=== PATIENT | female | born 1950 | race Caucasian/White ===

== ENCOUNTER 2018-01-24 17:19 | Inpatient (IN) | payer OTHER ==
[~2018-01-24] VITALS: Ht 154.9 cm; Wt 65.8 kg
[2018-01-24 17:22] VITALS: BP 184/74
[2018-01-24] MEDS ORDERED: NACL 0.9% 1,000 ML IV ONE (17:40)
[2018-01-24] MEDS ORDERED: METOCLOPRAMIDE 10 MG/2 ML INJ VIAL IVP ONE (17:40)
[2018-01-24 18:08] LABS: BASOPHILS # (AUTO) 0.1 K/uL (0.00-0.22); BASOPHILS % (AUTO) 0.6 % (0.0-2.0); EOSINOPHILS # (AUTO) 0.1 K/uL (0-0.4); EOSINOPHILS % (AUTO) 0.9 % (0.0-4.0); HEMATOCRIT 29.7 % (36-48); HEMOGLOBIN 10.3 g/dL (12.0-16.0); LYMPHOCYTES % (AUTO) 9.8 % (20.5-51.1); MEAN CORPUSCULAR HEMOGLOBIN 28 pg (27-31); MEAN CORPUSCULAR HGB CONC 35 g/dL (33-37); MONOCYTES # (AUTO) 0.5 K/uL (0.8-1.0); MONOCYTES % (AUTO) 4.8 % (1.7-9.3); NEUTROPHILS # (AUTO) 8.5 K/uL (1.8-7.7); NEUTROPHILS % (AUTO) 83.9 % (42.2-75.2); PLATELET COUNT (AUTO) 399 K/uL (140-450); RED BLOOD CELL COUNT(AUTO) 3.67 MIL/uL (4.20-5.40); RED CELL DISTRIBUTION WIDTH 13.4 % (11.6-13.7); WHITE BLOOD COUNT (AUTO) 10.2 K/uL (4.8-10.8)
[2018-01-24 18:25] LABS: ALBUMIN 2.6 g/dL (3.4-5.0); ANION GAP 16.7 (8-16); CARBON DIOXIDE 21.4 mmol/L (21-32); POTASSIUM 5.1 mmol/L (3.5-5.1); TOTAL BILIRUBIN 0.3 mg/dL (0.0-1.0)
[2018-01-24 18:29] LABS: CREATININE 4.4 mg/dL (0.6-1.3)
[2018-01-24] MEDS ORDERED: NACL 0.9% 1,000 ML IV SCH (18:48)
[2018-01-24] MEDS ORDERED: ACETAMINOPHEN 325 MG TAB PO PRN (18:50)
[2018-01-24] MEDS ORDERED: MORPHINE SULFATE 4 MG/ML SYR IVP PRN ×2 (18:50→19:25)
[2018-01-24] MEDS ORDERED: NITROGLYCERIN 0.4 MG TAB SL PRN (19:25)
[2018-01-24] MEDS ORDERED: DEXTROSE 50% 50 ML SYR IVP PRN (19:30)
[2018-01-24 19:33] LABS: AMYLASE 55 U/L (25-115); CHOL/HDL RATIO 5.2 (1-4.5); FREE T4 (FREE THYROXINE) 1.43 ng/dL (0.76-1.46); HDL CHOLESTEROL 47 mg/dL (40-60); LDL (CALC) 161 mg/dL (60-100); LIPASE 113 U/L (73-393); MAGNESIUM 2.1 mg/dL (1.8-2.4); PHOSPHORUS 5.6 mg/dL (2.5-4.9); THYROID STIMULATING HORMONE 8.39 uIU/mL (0.34-3.74); TRIGLYCERIDES 191 mg/dL (30-150)
[2018-01-24] MEDS ORDERED: SYN.1 PO (19:38)
[2018-01-24] MEDS ORDERED: METO25TA PO (19:38)
[2018-01-24] MEDS ORDERED: AMLO5TAB PO (19:38)
[2018-01-24] MEDS ORDERED: HUM SUBQ ×2 (19:38)
[2018-01-24] MEDS ORDERED: SODIUM PHOSPHATE 118 ML ENEM RC PRN (19:45)
[2018-01-24] MEDS ORDERED: BISACODYL 10 MG SUPP RC SCH (20:00)
[2018-01-24] MEDS: amLODIPine 5 MG TAB PO SCH (20:48)
[2018-01-24] MEDS: METOPROLOL 50 MG TAB PO SCH (20:49)
[2018-01-24] MEDS: BLOOD GLUCOSE MONITORING 1 DEV DEV FS SCH (20:51)
[2018-01-24] MEDS ORDERED: SIMVASTATIN 20 MG TAB PO SCH (21:00)
[2018-01-24] MEDS: SIMVASTATIN 20 MG TAB PO SCH (21:13)
[2018-01-24] MEDS: HYDROcodone/APAP 7.5/325 MG 1 TAB PO PRN (21:13)
[2018-01-24] MEDS ORDERED: FUROSEMIDE 40 MG/4 ML VIAL IVP SCH (22:00)
[2018-01-24] MEDS ORDERED: CALCIUM ACETATE 667 MG TAB PO SCH (22:30)
[2018-01-24] MEDS ORDERED: POLYETHYLENE GLYCOL 17 GM/PKT PO SCH (22:30)
[2018-01-24] MEDS: INSULIN LISPRO SLIDING SCALE 100 UNITS/ML VIAL SUBQ PRN (22:47)
[2018-01-25] VITALS: BP 157/88
[2018-01-25 03:47] LABS: BASOPHILS # (AUTO) 0.1 K/uL (0.00-0.22); BASOPHILS % (AUTO) 0.6 % (0.0-2.0); EOSINOPHILS # (AUTO) 0.1 K/uL (0-0.4); EOSINOPHILS % (AUTO) 1.5 % (0.0-4.0); HEMATOCRIT 25.9 % (36-48); HEMOGLOBIN 8.9 g/dL (12.0-16.0); LYMPHOCYTES # (AUTO) 1.1 K/uL (2.5-16.5); LYMPHOCYTES % (AUTO) 11.8 % (20.5-51.1); MEAN CORPUSCULAR HEMOGLOBIN 28 pg (27-31); MEAN CORPUSCULAR HGB CONC 34 g/dL (33-37); MEAN CORPUSCULAR VOLUME 81.8 fL (80-94); MONOCYTES # (AUTO) 0.6 K/uL (0.8-1.0); MONOCYTES % (AUTO) 6.9 % (1.7-9.3); NEUTROPHILS # (AUTO) 7.3 K/uL (1.8-7.7); NEUTROPHILS % (AUTO) 79.2 % (42.2-75.2); PLATELET COUNT (AUTO) 340 K/uL (140-450); RED BLOOD CELL COUNT(AUTO) 3.17 MIL/uL (4.20-5.40); RED CELL DISTRIBUTION WIDTH 13.4 % (11.6-13.7); WHITE BLOOD COUNT (AUTO) 9.2 K/uL (4.8-10.8)
[2018-01-25 03:51] LABS: ALBUMIN 2.2 g/dL (3.4-5.0); ANION GAP 13.8 (8-16); CARBON DIOXIDE 21.6 mmol/L (21-32); MAGNESIUM 1.9 mg/dL (1.8-2.4); PHOSPHORUS 5.5 mg/dL (2.5-4.9); POTASSIUM 4.4 mmol/L (3.5-5.1); TOTAL BILIRUBIN 0.2 mg/dL (0.0-1.0)
[2018-01-25 04:00] VITALS: BP 157/55
[2018-01-25 04:15] LABS: CREATININE 4.3 mg/dL (0.6-1.3)
[2018-01-25] MEDS ORDERED: SODIUM CHLORIDE 1 GM TAB PO SCH (05:00)
[2018-01-25] MEDS: LEVOTHYROXINE 0.1 MG TAB PO SCH (05:40)
[2018-01-25] MEDS: BLOOD GLUCOSE MONITORING 1 DEV DEV FS SCH ×4 (05:48→20:35)
[2018-01-25] MEDS: INSULIN LISPRO SLIDING SCALE 100 UNITS/ML VIAL SUBQ PRN ×4 (05:49→20:50)
[2018-01-25] MEDS ORDERED: INSULIN LISPRO 100 UNITS/ML VIAL SUBQ SCH ×2 (06:30→16:30)
[2018-01-25 08:00] VITALS: BP 176/68
[2018-01-25] MEDS: ASPIRIN 81 MG TAB.CHEW PO SCH (08:24)
[2018-01-25] MEDS: METOPROLOL 50 MG TAB PO SCH ×2 (08:24→20:28)
[2018-01-25] MEDS: HYDROcodone/APAP 7.5/325 MG 1 TAB PO PRN ×2 (08:24→14:21)
[2018-01-25] MEDS: FUROSEMIDE 40 MG/4 ML VIAL IVP SCH ×2 (08:25→12:02)
[2018-01-25] MEDS: amLODIPine 5 MG TAB PO SCH ×2 (08:25→20:29)
[2018-01-25] MEDS ORDERED: LISINOPRIL 5 MG TAB PO SCH (09:00)
[2018-01-25] MEDS ORDERED: FUROSEMIDE 20 MG/2 ML VIAL IVP SCH (09:00)
[2018-01-25 12:00] VITALS: BP 175/75
[2018-01-25] MEDS: PROMETHAZINE 25 MG/ML VIAL IVP PRN (12:02)
[2018-01-25] MEDS ORDERED: NACL 0.9% 1,000 ML IV SCH (13:40)
[2018-01-25] MEDS ORDERED: SODIUM POLYSTYRENE 15 GM/60 ML UDBTL PO SCH (13:50)
[2018-01-25] MEDS ORDERED: METOPROLOL 25 MG TAB PO SCH (14:12)
[2018-01-25] MEDS ORDERED: hydrALAZINE 20 MG/ML VIAL IVP PRN (14:45)
[2018-01-25] MEDS ORDERED: NACL 3% 500 ML IV SCH (14:55)
[2018-01-25 16:00] VITALS: BP 158/67
[2018-01-25] MEDS: hydrALAZINE 10 MG TAB PO SCH (17:20)
[2018-01-25 18:42] LABS: APPEARANCE,URINE CLEAR (CLEAR); BILIRUBIN,URINE NEGATIVE (NEGATIVE); BLOOD, URINE 1+ (NEGATIVE); LEUKOCYTE ESTERASE ,URINE NEGATIVE (NEGATIVE); NITRITE, URINE NEGATIVE (NEGATIVE); PH,URINE 6.5 (5.0-9.0); UGLUCOSE 1+ (NEGATIVE)
[2018-01-25 18:44] LABS: CARBON DIOXIDE 18.7 mmol/L (21-32); POTASSIUM 4.4 mmol/L (3.5-5.1)
[2018-01-25 18:47] LABS: ANION GAP 18.7 (8-16); CREATININE 4.5 mg/dL (0.6-1.3)
[2018-01-25 18:48] LABS: BARBITURATE, URINE NEG. ng/ml (NEG <=200); BENZODIAZEPINE, URINE NEG. ng/mL (NEG <=200); CANNABINOID, URINE NEG. ng/mL (NEG <=50); COCAINE, URINE NEG. ng/mL (NEG <=300); COLOR,URINE STRAW (YELLOW); OPIATE, URINE NEG. ng/mL (NEG <=2000); PHENCYCLIDINE SCREEN,URINE NEG. ng/mL (NEG <=25)
[2018-01-25 18:54] LABS: COARSE GRANULAR CASTS,URINE 0-10 /LPF (None Seen); RBC,URINE 0-5 (RARE) /HPF (0-5); WBC,URINE 0-5 (RARE) /HPF (0-5)
[2018-01-25 20:00] VITALS: BP 176/75
[2018-01-25] MEDS: SIMVASTATIN 20 MG TAB PO SCH (20:28)
[2018-01-25] MEDS: AMITRIPTYLINE 25 MG TAB PO SCH (20:29)
[2018-01-25] MEDS ORDERED: METOPROLOL 50 MG TAB PO SCH ×2 (21:00)
[2018-01-25] MEDS ORDERED: AMITRIPTYLINE 25 MG TAB PO SCH (21:00)
[2018-01-25 23:34] LABS: ANION GAP 16.1 (8-16); CARBON DIOXIDE 20.9 mmol/L (21-32)
[2018-01-25 23:43] LABS: CREATININE 4.6 mg/dL (0.6-1.3)
[2018-01-26] VITALS: BP 151/65
[2018-01-26 04:00] VITALS: BP 169/66
[2018-01-26 05:48] LABS: BASOPHILS # (AUTO) 0.1 K/uL (0.00-0.22); BASOPHILS % (AUTO) 0.9 % (0.0-2.0); EOSINOPHILS # (AUTO) 0.2 K/uL (0-0.4); EOSINOPHILS % (AUTO) 1.9 % (0.0-4.0); HEMATOCRIT 25.7 % (36-48); HEMOGLOBIN 8.8 g/dL (12.0-16.0); LYMPHOCYTES # (AUTO) 1.3 K/uL (2.5-16.5); LYMPHOCYTES % (AUTO) 13.7 % (20.5-51.1); MEAN CORPUSCULAR HEMOGLOBIN 28 pg (27-31); MEAN CORPUSCULAR HGB CONC 34 g/dL (33-37); MEAN CORPUSCULAR VOLUME 81.8 fL (80-94); MONOCYTES # (AUTO) 0.7 K/uL (0.8-1.0); MONOCYTES % (AUTO) 7.5 % (1.7-9.3); PLATELET COUNT (AUTO) 354 K/uL (140-450); RED BLOOD CELL COUNT(AUTO) 3.14 MIL/uL (4.20-5.40); RED CELL DISTRIBUTION WIDTH 13.1 % (11.6-13.7); WHITE BLOOD COUNT (AUTO) 9.2 K/uL (4.8-10.8)
[2018-01-26 06:27] LABS: MAGNESIUM 2.2 mg/dL (1.8-2.4); PHOSPHORUS 6.8 mg/dL (2.5-4.9)
[2018-01-26 06:29] LABS: ANION GAP 15.4 (8-16); CARBON DIOXIDE 19.9 mmol/L (21-32); POTASSIUM 4.3 mmol/L (3.5-5.1)
[2018-01-26] MEDS: LEVOTHYROXINE 0.1 MG TAB PO SCH (06:31)
[2018-01-26] MEDS: BLOOD GLUCOSE MONITORING 1 DEV DEV FS SCH ×4 (06:31→21:29)
[2018-01-26 06:35] LABS: CREATININE 4.7 mg/dL (0.6-1.3)
[2018-01-26] MEDS: INSULIN LISPRO SLIDING SCALE 100 UNITS/ML VIAL SUBQ PRN ×4 (06:35→21:32)
[2018-01-26 08:00] VITALS: BP 184/76
[2018-01-26] MEDS: METOPROLOL 50 MG TAB PO SCH ×2 (08:11→22:09)
[2018-01-26] MEDS: amLODIPine 5 MG TAB PO SCH ×2 (08:11→22:10)
[2018-01-26] MEDS: ASPIRIN 81 MG TAB.CHEW PO SCH (08:11)
[2018-01-26] MEDS: hydrALAZINE 10 MG TAB PO SCH (08:14)
[2018-01-26] MEDS: FUROSEMIDE 100 MG/10 ML VIAL IV SCH ×2 (09:25→13:14)
[2018-01-26 12:00] VITALS: BP 155/64
[2018-01-26] MEDS: CALCIUM ACETATE 667 MG TAB PO SCH ×2 (13:12→18:05)
[2018-01-26] MEDS: hydrALAZINE 25 MG TAB PO SCH ×2 (13:14→17:00)
[2018-01-26 16:00] VITALS: BP 155/57
[2018-01-26 16:53] LABS: ANION GAP 16.1 (8-16); CARBON DIOXIDE 20.8 mmol/L (21-32); POTASSIUM 3.9 mmol/L (3.5-5.1)
[2018-01-26 16:55] LABS: CREATININE 4.7 mg/dL (0.6-1.3)
[2018-01-26] MEDS ORDERED: OSMITROL 25% 12.5 GM/50 ML VIAL IV SCH (18:00)
[2018-01-26 20:00] VITALS: BP 168/75
[2018-01-26] MEDS: AMITRIPTYLINE 25 MG TAB PO SCH (22:09)
[2018-01-26] MEDS: SIMVASTATIN 20 MG TAB PO SCH (22:10)
[2018-01-27 00:10] VITALS: BP 154/69
[2018-01-27 04:20] VITALS: BP 174/83
[2018-01-27] MEDS: BLOOD GLUCOSE MONITORING 1 DEV DEV FS SCH ×4 (06:05→21:27)
[2018-01-27] MEDS: INSULIN LISPRO SLIDING SCALE 100 UNITS/ML VIAL SUBQ PRN ×4 (06:09→21:28)
[2018-01-27 06:10] LABS: BASOPHILS # (AUTO) 0.1 K/uL (0.00-0.22); BASOPHILS % (AUTO) 1.3 % (0.0-2.0); EOSINOPHILS # (AUTO) 0.4 K/uL (0-0.4); EOSINOPHILS % (AUTO) 4.9 % (0.0-4.0); HEMATOCRIT 25.1 % (36-48); HEMOGLOBIN 8.7 g/dL (12.0-16.0); LYMPHOCYTES # (AUTO) 1.5 K/uL (2.5-16.5); LYMPHOCYTES % (AUTO) 17.8 % (20.5-51.1); MEAN CORPUSCULAR HEMOGLOBIN 28 pg (27-31); MEAN CORPUSCULAR HGB CONC 35 g/dL (33-37); MEAN CORPUSCULAR VOLUME 81.3 fL (80-94); MONOCYTES # (AUTO) 0.9 K/uL (0.8-1.0); MONOCYTES % (AUTO) 10.5 % (1.7-9.3); NEUTROPHILS # (AUTO) 5.7 K/uL (1.8-7.7); NEUTROPHILS % (AUTO) 65.5 % (42.2-75.2); PLATELET COUNT (AUTO) 355 K/uL (140-450); RED BLOOD CELL COUNT(AUTO) 3.09 MIL/uL (4.20-5.40); RED CELL DISTRIBUTION WIDTH 13.5 % (11.6-13.7); WHITE BLOOD COUNT (AUTO) 8.7 K/uL (4.8-10.8)
[2018-01-27] MEDS: LEVOTHYROXINE 0.1 MG TAB PO SCH (06:12)
[2018-01-27 06:22] LABS: T4 (THYROXINE) 9.9 ug/dL (4.5-12.0)
[2018-01-27] MEDS: HYDROcodone/APAP 7.5/325 MG 1 TAB PO PRN (06:39)
[2018-01-27 06:42] LABS: ANION GAP 13.5 (8-16); CARBON DIOXIDE 23.6 mmol/L (21-32); CREATININE 3.7 mg/dL (0.6-1.3); POTASSIUM 3.1 mmol/L (3.5-5.1)
[2018-01-27 06:55] LABS: MAGNESIUM 1.8 mg/dL (1.8-2.4); PHOSPHORUS 4.6 mg/dL (2.5-4.9)
[2018-01-27 08:00] VITALS: BP 143/60
[2018-01-27] MEDS: CALCIUM ACETATE 667 MG TAB PO SCH ×3 (08:13→18:05)
[2018-01-27] MEDS: FUROSEMIDE 100 MG/10 ML VIAL IV SCH ×2 (08:14→13:02)
[2018-01-27] MEDS: ASPIRIN 81 MG TAB.CHEW PO SCH (08:14)
[2018-01-27] MEDS: hydrALAZINE 25 MG TAB PO SCH ×3 (08:14→18:04)
[2018-01-27] MEDS: amLODIPine 5 MG TAB PO SCH ×2 (08:15→20:40)
[2018-01-27] MEDS: METOPROLOL 50 MG TAB PO SCH ×2 (08:15→20:39)
[2018-01-27 08:18] LABS: HEPATITIS A ANTIBODY IGM Negative (Negative); HEPATITIS B CORE AB TOTAL Negative (Negative); HEPATITIS B SURFACE ANTIBODY Non Reactive (.); HEPATITIS B SURFACE ANTIGEN Negative (Negative)
[2018-01-27] MEDS ORDERED: PANTOPRAZOLE 40 MG TABEC PO SCH (10:30)
[2018-01-27] MEDS ORDERED: POTASSIUM CHLORIDE 10 MEQ TABER PO SCH (10:50)
[2018-01-27 12:00] VITALS: BP 157/62
[2018-01-27] MEDS: PROMETHAZINE 25 MG/ML VIAL IVP PRN (14:38)
[2018-01-27 16:00] VITALS: BP 153/60
[2018-01-27 20:34] VITALS: BP 174/81
[2018-01-27] MEDS: SIMVASTATIN 20 MG TAB PO SCH (20:40)
[2018-01-27] MEDS: AMITRIPTYLINE 25 MG TAB PO SCH (20:40)
[2018-01-28] VITALS (7 sets, daily range): BP systolic 136–182; BP diastolic 62–78
[2018-01-28] MEDS: BLOOD GLUCOSE MONITORING 1 DEV DEV FS SCH ×4 (05:22→20:47)
[2018-01-28 06:33] LABS: BASOPHILS # (AUTO) 0.1 K/uL (0.00-0.22); BASOPHILS % (AUTO) 1.6 % (0.0-2.0); EOSINOPHILS # (AUTO) 0.3 K/uL (0-0.4); EOSINOPHILS % (AUTO) 4.2 % (0.0-4.0); HEMOGLOBIN 8.6 g/dL (12.0-16.0); LYMPHOCYTES # (AUTO) 1.9 K/uL (2.5-16.5); LYMPHOCYTES % (AUTO) 23.3 % (20.5-51.1); MEAN CORPUSCULAR HEMOGLOBIN 28 pg (27-31); MEAN CORPUSCULAR HGB CONC 34 g/dL (33-37); MEAN CORPUSCULAR VOLUME 82.7 fL (80-94); NEUTROPHILS # (AUTO) 4.8 K/uL (1.8-7.7); NEUTROPHILS % (AUTO) 58.9 % (42.2-75.2); PLATELET COUNT (AUTO) 353 K/uL (140-450); RED BLOOD CELL COUNT(AUTO) 3.02 MIL/uL (4.20-5.40); RED CELL DISTRIBUTION WIDTH 13.4 % (11.6-13.7); WHITE BLOOD COUNT (AUTO) 8.2 K/uL (4.8-10.8)
[2018-01-28 06:41] LABS: ANION GAP 12.2 (8-16); CARBON DIOXIDE 25.5 mmol/L (21-32); POTASSIUM 3.7 mmol/L (3.5-5.1)
[2018-01-28 06:51] LABS: MAGNESIUM 1.6 mg/dL (1.8-2.4)
[2018-01-28] MEDS: LEVOTHYROXINE 0.1 MG TAB PO SCH (06:53)
[2018-01-28] MEDS: CALCIUM ACETATE 667 MG TAB PO SCH ×3 (08:43→17:54)
[2018-01-28] MEDS: FUROSEMIDE 100 MG/10 ML VIAL IV SCH ×2 (08:43→13:09)
[2018-01-28] MEDS: GABAPENTIN 100 MG CAP PO SCH ×3 (08:43→17:54)
[2018-01-28] MEDS: PANTOPRAZOLE 40 MG TABEC PO SCH (08:44)
[2018-01-28] MEDS: METOPROLOL 50 MG TAB PO SCH ×2 (08:44→20:21)
[2018-01-28] MEDS: ASPIRIN 81 MG TAB.CHEW PO SCH (08:44)
[2018-01-28] MEDS: LISINOPRIL 5 MG TAB PO SCH (08:44)
[2018-01-28] MEDS: amLODIPine 5 MG TAB PO SCH ×2 (08:44→20:21)
[2018-01-28] MEDS ORDERED: MAG SULF 2000 MG/WATER PREMIX 50 ML IV SCH (12:00)
[2018-01-28] MEDS ORDERED: MAGNESIUM OXIDE 400 MG TAB PO SCH (12:00)
[2018-01-28] MEDS: INSULIN LISPRO SLIDING SCALE 100 UNITS/ML VIAL SUBQ PRN ×3 (13:12→20:52)
[2018-01-28] MEDS: AMITRIPTYLINE 25 MG TAB PO SCH (20:21)
[2018-01-28] MEDS: SIMVASTATIN 20 MG TAB PO SCH (20:21)
[2018-01-29] VITALS: BP 148/76
[2018-01-29 06:03] VITALS: BP 155/68
[2018-01-29] MEDS: BLOOD GLUCOSE MONITORING 1 DEV DEV FS SCH ×4 (06:21→21:11)
[2018-01-29] MEDS: LEVOTHYROXINE 0.1 MG TAB PO SCH (06:23)
[2018-01-29] MEDS: INSULIN LISPRO SLIDING SCALE 100 UNITS/ML VIAL SUBQ PRN ×3 (06:28→21:23)
[2018-01-29 06:39] LABS: BASOPHILS # (AUTO) 0.1 K/uL (0.00-0.22); BASOPHILS % (AUTO) 1.3 % (0.0-2.0); EOSINOPHILS # (AUTO) 0.6 K/uL (0-0.4); EOSINOPHILS % (AUTO) 6.1 % (0.0-4.0); HEMATOCRIT 25.2 % (36-48); HEMOGLOBIN 8.8 g/dL (12.0-16.0); LYMPHOCYTES # (AUTO) 2.1 K/uL (2.5-16.5); LYMPHOCYTES % (AUTO) 20.5 % (20.5-51.1); MEAN CORPUSCULAR HEMOGLOBIN 29 pg (27-31); MEAN CORPUSCULAR HGB CONC 35 g/dL (33-37); MEAN CORPUSCULAR VOLUME 83.6 fL (80-94); MONOCYTES % (AUTO) 10.1 % (1.7-9.3); NEUTROPHILS # (AUTO) 6.4 K/uL (1.8-7.7); PLATELET COUNT (AUTO) 354 K/uL (140-450); RED BLOOD CELL COUNT(AUTO) 3.02 MIL/uL (4.20-5.40); RED CELL DISTRIBUTION WIDTH 13.6 % (11.6-13.7); WHITE BLOOD COUNT (AUTO) 10.4 K/uL (4.8-10.8)
[2018-01-29 07:26] LABS: ANION GAP 12.1 (8-16); CARBON DIOXIDE 25.6 mmol/L (21-32); POTASSIUM 3.7 mmol/L (3.5-5.1)
[2018-01-29 07:31] LABS: CREATININE 4.1 mg/dL (0.6-1.3)
[2018-01-29 08:00] VITALS: BP 153/57
[2018-01-29 08:16] LABS: MAGNESIUM 2.7 mg/dL (1.8-2.4); PHOSPHORUS 2.9 mg/dL (2.5-4.9)
[2018-01-29] MEDS: FUROSEMIDE 100 MG/10 ML VIAL IV SCH ×2 (09:00→12:09)
[2018-01-29] MEDS: METOPROLOL 50 MG TAB PO SCH ×2 (09:00→21:13)
[2018-01-29] MEDS: amLODIPine 5 MG TAB PO SCH ×2 (09:00→21:13)
[2018-01-29] MEDS: LISINOPRIL 5 MG TAB PO SCH (09:00)
[2018-01-29] MEDS: ASPIRIN 81 MG TAB.CHEW PO SCH (09:09)
[2018-01-29] MEDS: PANTOPRAZOLE 40 MG TABEC PO SCH (09:09)
[2018-01-29] MEDS: CALCIUM ACETATE 667 MG TAB PO SCH ×3 (09:09→16:49)
[2018-01-29] MEDS: GABAPENTIN 100 MG CAP PO SCH (09:09)
[2018-01-29 12:00] VITALS: BP 153/62
[2018-01-29] MEDS ORDERED: EPOETIN ALFA IV SCH ×4 (12:00→21:00)
[2018-01-29 16:00] VITALS: BP 169/80
[2018-01-29] MEDS: DOCUSATE SODIUM 100 MG GELCAP PO PRN (16:49)
[2018-01-29] MEDS ORDERED: SODIUM PHOSPHATE 118 ML ENEM RC PRN (18:35)
[2018-01-29 20:00] VITALS: BP 167/75
[2018-01-29] MEDS ORDERED: GABAPENTIN 300 MG CAP PO SCH (21:00)
[2018-01-29] MEDS: SIMVASTATIN 20 MG TAB PO SCH (21:12)
[2018-01-29] MEDS: AMITRIPTYLINE 25 MG TAB PO SCH (21:13)
[2018-01-30] VITALS: BP 156/54
[2018-01-30 04:00] VITALS: BP 131/68
[2018-01-30] MEDS: BLOOD GLUCOSE MONITORING 1 DEV DEV FS SCH ×4 (06:52→21:03)
[2018-01-30] MEDS: LEVOTHYROXINE 0.1 MG TAB PO SCH (06:54)
[2018-01-30] MEDS: INSULIN LISPRO SLIDING SCALE 100 UNITS/ML VIAL SUBQ PRN ×4 (06:56→21:06)
[2018-01-30 07:41] LABS: BASOPHILS # (AUTO) 0.1 K/uL (0.00-0.22); EOSINOPHILS # (AUTO) 0.7 K/uL (0-0.4); EOSINOPHILS % (AUTO) 6.7 % (0.0-4.0); HEMATOCRIT 27.9 % (36-48); HEMOGLOBIN 9.4 g/dL (12.0-16.0); LYMPHOCYTES # (AUTO) 1.7 K/uL (2.5-16.5); LYMPHOCYTES % (AUTO) 16.5 % (20.5-51.1); MEAN CORPUSCULAR HEMOGLOBIN 28 pg (27-31); MEAN CORPUSCULAR HGB CONC 34 g/dL (33-37); MEAN CORPUSCULAR VOLUME 83.8 fL (80-94); MONOCYTES # (AUTO) 0.9 K/uL (0.8-1.0); MONOCYTES % (AUTO) 8.2 % (1.7-9.3); NEUTROPHILS # (AUTO) 7.1 K/uL (1.8-7.7); NEUTROPHILS % (AUTO) 67.6 % (42.2-75.2); PLATELET COUNT (AUTO) 380 K/uL (140-450); RED BLOOD CELL COUNT(AUTO) 3.32 MIL/uL (4.20-5.40); RED CELL DISTRIBUTION WIDTH 13.6 % (11.6-13.7); WHITE BLOOD COUNT (AUTO) 10.5 K/uL (4.8-10.8)
[2018-01-30 07:49] LABS: MAGNESIUM 1.6 mg/dL (1.8-2.4); PHOSPHORUS 2.7 mg/dL (2.5-4.9)
[2018-01-30 08:00] VITALS: BP 166/97
[2018-01-30 08:02] LABS: ANION GAP 11.2 (8-16); CARBON DIOXIDE 26.3 mmol/L (21-32); CREATININE 3.2 mg/dL (0.6-1.3); POTASSIUM 3.5 mmol/L (3.5-5.1)
[2018-01-30] MEDS: amLODIPine 5 MG TAB PO SCH ×2 (08:53→21:04)
[2018-01-30] MEDS: ASPIRIN 81 MG TAB.CHEW PO SCH (08:53)
[2018-01-30] MEDS: PANTOPRAZOLE 40 MG TABEC PO SCH (08:54)
[2018-01-30] MEDS: LISINOPRIL 5 MG TAB PO SCH (08:54)
[2018-01-30] MEDS: METOPROLOL 50 MG TAB PO SCH ×2 (08:54→21:04)
[2018-01-30] MEDS: FUROSEMIDE 100 MG/10 ML VIAL IV SCH ×2 (08:58→13:31)
[2018-01-30] MEDS: CALCIUM ACETATE 667 MG TAB PO SCH ×3 (09:09→18:18)
[2018-01-30 12:00] VITALS: BP 167/62
[2018-01-30] MEDS ORDERED: LISINOPRIL 5 MG TAB PO SCH (13:36)
[2018-01-30] MEDS ORDERED: MAGNESIUM OXIDE 400 MG TAB PO SCH (14:00)
[2018-01-30 16:00] VITALS: BP 172/70
[2018-01-30] MEDS ORDERED: METOPROLOL 50 MG TAB PO SCH (17:30)
[2018-01-30] MEDS: GABAPENTIN 300 MG CAP PO SCH (18:17)
[2018-01-30 20:00] VITALS: BP 166/69
[2018-01-30] MEDS: AMITRIPTYLINE 25 MG TAB PO SCH (21:04)
[2018-01-30] MEDS: SIMVASTATIN 20 MG TAB PO SCH (21:05)
[2018-01-31] VITALS: BP 164/63
[2018-01-31 04:00] VITALS: BP 149/53
[2018-01-31] MEDS: BLOOD GLUCOSE MONITORING 1 DEV DEV FS SCH ×2 (06:24→11:30)
[2018-01-31] MEDS: LEVOTHYROXINE 0.1 MG TAB PO SCH (06:24)
[2018-01-31] MEDS: INSULIN LISPRO SLIDING SCALE 100 UNITS/ML VIAL SUBQ PRN ×3 (06:25→16:31)
[2018-01-31 07:20] LABS: BASOPHILS # (AUTO) 0.1 K/uL (0.00-0.22); BASOPHILS % (AUTO) 1.2 % (0.0-2.0); EOSINOPHILS # (AUTO) 0.9 K/uL (0-0.4); EOSINOPHILS % (AUTO) 8.7 % (0.0-4.0); HEMOGLOBIN 8.2 g/dL (12.0-16.0); LYMPHOCYTES # (AUTO) 2.5 K/uL (2.5-16.5); LYMPHOCYTES % (AUTO) 24.9 % (20.5-51.1); MEAN CORPUSCULAR HEMOGLOBIN 28 pg (27-31); MEAN CORPUSCULAR HGB CONC 34 g/dL (33-37); MEAN CORPUSCULAR VOLUME 82.7 fL (80-94); MONOCYTES # (AUTO) 0.7 K/uL (0.8-1.0); MONOCYTES % (AUTO) 7.5 % (1.7-9.3); NEUTROPHILS # (AUTO) 5.7 K/uL (1.8-7.7); NEUTROPHILS % (AUTO) 57.7 % (42.2-75.2); PLATELET COUNT (AUTO) 341 K/uL (140-450); RED BLOOD CELL COUNT(AUTO) 2.91 MIL/uL (4.20-5.40); RED CELL DISTRIBUTION WIDTH 13.4 % (11.6-13.7); WHITE BLOOD COUNT (AUTO) 9.9 K/uL (4.8-10.8)
[2018-01-31 07:36] LABS: ANION GAP 14.1 (8-16); CARBON DIOXIDE 23.4 mmol/L (21-32); POTASSIUM 3.5 mmol/L (3.5-5.1)
[2018-01-31 07:41] LABS: CREATININE 4.1 mg/dL (0.6-1.3)
[2018-01-31 07:45] LABS: MAGNESIUM 1.6 mg/dL (1.8-2.4); PHOSPHORUS 3.5 mg/dL (2.5-4.9)
[2018-01-31 07:55] VITALS: BP 146/55
[2018-01-31] MEDS: FUROSEMIDE 100 MG/10 ML VIAL IV SCH ×2 (08:51→13:10)
[2018-01-31] MEDS: PANTOPRAZOLE 40 MG TABEC PO SCH (08:51)
[2018-01-31] MEDS: amLODIPine 5 MG TAB PO SCH ×2 (08:52→21:00)
[2018-01-31] MEDS: ASPIRIN 81 MG TAB.CHEW PO SCH (08:53)
[2018-01-31] MEDS: METOPROLOL 50 MG TAB PO SCH ×2 (08:53→21:00)
[2018-01-31] MEDS: CALCIUM ACETATE 667 MG TAB PO SCH ×3 (08:54→16:31)
[2018-01-31] MEDS ORDERED: LISINOPRIL 5 MG TAB PO SCH (09:00)
[2018-01-31] MEDS: LISINOPRIL 10 MG TAB PO SCH (09:01)
[2018-01-31 12:00] VITALS: BP 165/65
[2018-01-31] MEDS ORDERED: MAGNESIUM OXIDE 400 MG TAB PO SCH (13:46)
[2018-01-31 16:00] VITALS: BP 168/73
[2018-01-31] MEDS: GABAPENTIN 300 MG CAP PO SCH (16:31)
[2018-01-31 20:00] VITALS: BP 180/71
[2018-01-31] MEDS: SIMVASTATIN 20 MG TAB PO SCH (21:00)
[2018-01-31] MEDS: AMITRIPTYLINE 25 MG TAB PO SCH (22:40)
[2018-02-01] VITALS: BP 157/68
[2018-02-01] MEDS: LEVOTHYROXINE 0.1 MG TAB PO SCH (05:45)
[2018-02-01] MEDS: INSULIN LISPRO SLIDING SCALE 100 UNITS/ML VIAL SUBQ PRN ×3 (05:51→21:46)
[2018-02-01 06:00] VITALS: BP 154/69
[2018-02-01 06:20] LABS: BASOPHILS # (AUTO) 0.1 K/uL (0.00-0.22); BASOPHILS % (AUTO) 1.2 % (0.0-2.0); EOSINOPHILS # (AUTO) 0.6 K/uL (0-0.4); EOSINOPHILS % (AUTO) 6.4 % (0.0-4.0); HEMATOCRIT 23.8 % (36-48); LYMPHOCYTES # (AUTO) 1.9 K/uL (2.5-16.5); LYMPHOCYTES % (AUTO) 20.3 % (20.5-51.1); MEAN CORPUSCULAR HEMOGLOBIN 28 pg (27-31); MEAN CORPUSCULAR HGB CONC 34 g/dL (33-37); MEAN CORPUSCULAR VOLUME 83.4 fL (80-94); MONOCYTES # (AUTO) 0.8 K/uL (0.8-1.0); MONOCYTES % (AUTO) 8.7 % (1.7-9.3); NEUTROPHILS # (AUTO) 5.9 K/uL (1.8-7.7); NEUTROPHILS % (AUTO) 63.4 % (42.2-75.2); PLATELET COUNT (AUTO) 347 K/uL (140-450); RED BLOOD CELL COUNT(AUTO) 2.86 MIL/uL (4.20-5.40); RED CELL DISTRIBUTION WIDTH 13.4 % (11.6-13.7); WHITE BLOOD COUNT (AUTO) 9.4 K/uL (4.8-10.8)
[2018-02-01 06:45] LABS: ANION GAP 13.2 (8-16); CARBON DIOXIDE 24.5 mmol/L (21-32); MAGNESIUM 1.8 mg/dL (1.8-2.4); PHOSPHORUS 4.2 mg/dL (2.5-4.9); POTASSIUM 3.7 mmol/L (3.5-5.1)
[2018-02-01 06:52] LABS: CREATININE 4.9 mg/dL (0.6-1.3)
[2018-02-01 08:00] VITALS: BP 138/47
[2018-02-01] MEDS: CALCIUM ACETATE 667 MG TAB PO SCH ×3 (08:51→16:31)
[2018-02-01] MEDS: PANTOPRAZOLE 40 MG TABEC PO SCH (08:51)
[2018-02-01] MEDS: ASPIRIN 81 MG TAB.CHEW PO SCH (08:51)
[2018-02-01] MEDS: FUROSEMIDE 100 MG/10 ML VIAL IV SCH ×2 (08:52→13:00)
[2018-02-01] MEDS: METOPROLOL 50 MG TAB PO SCH ×2 (08:52→21:00)
[2018-02-01] MEDS: amLODIPine 5 MG TAB PO SCH ×2 (08:52→21:00)
[2018-02-01] MEDS: LISINOPRIL 10 MG TAB PO SCH (08:53)
[2018-02-01] MEDS ORDERED: EPOETIN ALFA 10,000 UNITS/ML VIAL IV ONE (09:00)
[2018-02-01] MEDS ORDERED: BUPIVACAINE-MPF 0.25% 30 ML VIAL INJ ONE (09:31)
[2018-02-01] MEDS ORDERED: LIDOCAINE/EPI 1% 1:100000 20 ML VIAL INJ ONE (09:32)
[2018-02-01] MEDS ORDERED: ceFAZolin 1,000 MG VIAL ONE (09:48)
[2018-02-01] MEDS ORDERED: MIDAZOLAM 2 MG/2 ML VIAL ONE (10:27)
[2018-02-01] MEDS ORDERED: fentaNYL 0.05 MG/ML VIAL ONE (10:27)
[2018-02-01] MEDS ORDERED: ONDANSETRON 4 MG/2 ML VIAL IVP PRN (11:15)
[2018-02-01] MEDS ORDERED: diphenhydrAMINE 50 MG/ML VIAL IVP PRN (11:15)
[2018-02-01] MEDS ORDERED: NACL 0.9% 1,000 ML IV SCH (11:15)
[2018-02-01] MEDS ORDERED: BLOOD GLUCOSE MONITORING 1 DEV DEV FS SCH (11:17)
[2018-02-01] MEDS: BLOOD GLUCOSE MONITORING 1 DEV DEV FS SCH ×3 (11:45→21:00)
[2018-02-01] MEDS ORDERED: MORPHINE SULFATE 4 MG/ML SYR IV PRN (11:50)
[2018-02-01] MEDS ORDERED: HYDROcodone/APAP 5/325 MG 1 TAB TAB PO PRN (11:50)
[2018-02-01] MEDS ORDERED: MORPHINE SULFATE 2 MG/ML SYR IVP PRN (11:50)
[2018-02-01 12:30] VITALS: BP 143/57
[2018-02-01 16:00] VITALS: BP 165/70
[2018-02-01] MEDS ORDERED: EPOETIN ALFA 3,000 UNITS/ML VIAL ONE (16:29)
[2018-02-01] MEDS: GABAPENTIN 300 MG CAP PO SCH (16:31)
[2018-02-01] MEDS: EPOETIN ALFA IV SCH ×2 (16:32)
[2018-02-01 20:00] VITALS: BP 111/67
[2018-02-01] MEDS: AMITRIPTYLINE 25 MG TAB PO SCH (21:00)
[2018-02-01] MEDS: SIMVASTATIN 20 MG TAB PO SCH (21:07)
[2018-02-02] VITALS (7 sets, daily range): BP systolic 136–150; BP diastolic 47–65
[2018-02-02] MEDS: LEVOTHYROXINE 0.1 MG TAB PO SCH (05:47)
[2018-02-02] MEDS: INSULIN LISPRO SLIDING SCALE 100 UNITS/ML VIAL SUBQ PRN ×4 (06:13→20:36)
[2018-02-02] MEDS: BLOOD GLUCOSE MONITORING 1 DEV DEV FS SCH ×4 (06:15→21:53)
[2018-02-02 06:35] LABS: BASOPHILS # (AUTO) 0.1 K/uL (0.00-0.22); BASOPHILS % (AUTO) 0.8 % (0.0-2.0); EOSINOPHILS # (AUTO) 0.4 K/uL (0-0.4); EOSINOPHILS % (AUTO) 4.1 % (0.0-4.0); HEMOGLOBIN 8.4 g/dL (12.0-16.0); LYMPHOCYTES # (AUTO) 1.8 K/uL (2.5-16.5); LYMPHOCYTES % (AUTO) 19.6 % (20.5-51.1); MEAN CORPUSCULAR HEMOGLOBIN 29 pg (27-31); MEAN CORPUSCULAR HGB CONC 35 g/dL (33-37); MEAN CORPUSCULAR VOLUME 82.9 fL (80-94); MONOCYTES % (AUTO) 10.1 % (1.7-9.3); NEUTROPHILS # (AUTO) 6.2 K/uL (1.8-7.7); NEUTROPHILS % (AUTO) 65.4 % (42.2-75.2); PLATELET COUNT (AUTO) 346 K/uL (140-450); RED CELL DISTRIBUTION WIDTH 13.4 % (11.6-13.7); WHITE BLOOD COUNT (AUTO) 9.5 K/uL (4.8-10.8)
[2018-02-02 06:47] LABS: ANION GAP 10.8 (8-16); CARBON DIOXIDE 26.7 mmol/L (21-32); CREATININE 3.7 mg/dL (0.6-1.3); POTASSIUM 3.5 mmol/L (3.5-5.1)
[2018-02-02 06:48] LABS: PHOSPHORUS 2.8 mg/dL (2.5-4.9)
[2018-02-02 07:12] LABS: MAGNESIUM 1.7 mg/dL (1.8-2.4)
[2018-02-02] MEDS: PANTOPRAZOLE 40 MG TABEC PO SCH (09:35)
[2018-02-02] MEDS: amLODIPine 5 MG TAB PO SCH ×2 (09:36→20:40)
[2018-02-02] MEDS: CALCIUM ACETATE 667 MG TAB PO SCH ×3 (09:36→17:06)
[2018-02-02] MEDS: METOPROLOL 50 MG TAB PO SCH ×2 (09:36→20:40)
[2018-02-02] MEDS: LISINOPRIL 10 MG TAB PO SCH (09:36)
[2018-02-02] MEDS: ASPIRIN 81 MG TAB.CHEW PO SCH (09:37)
[2018-02-02] MEDS: FUROSEMIDE 100 MG/10 ML VIAL IV SCH ×2 (09:39→12:12)
[2018-02-02] MEDS: DOCUSATE SODIUM 100 MG GELCAP PO PRN (09:48)
[2018-02-02] MEDS: GABAPENTIN 300 MG CAP PO SCH (17:11)
[2018-02-02] MEDS ORDERED: MAGNESIUM CITRATE 300 ML BTL PO SCH (20:00)
[2018-02-02] MEDS: AMITRIPTYLINE 25 MG TAB PO SCH (20:40)
[2018-02-02] MEDS: SIMVASTATIN 20 MG TAB PO SCH (20:40)
[2018-02-02] MEDS ORDERED: MAGNESIUM OXIDE 400 MG TAB PO SCH (21:00)
[2018-02-03 04:00] VITALS: BP 139/54
[2018-02-03] MEDS: INSULIN LISPRO SLIDING SCALE 100 UNITS/ML VIAL SUBQ PRN ×4 (06:04→21:16)
[2018-02-03] MEDS: LEVOTHYROXINE 0.1 MG TAB PO SCH (06:06)
[2018-02-03] MEDS: BLOOD GLUCOSE MONITORING 1 DEV DEV FS SCH ×4 (06:06→21:01)
[2018-02-03 06:26] LABS: BASOPHILS # (AUTO) 0.1 K/uL (0.00-0.22); BASOPHILS % (AUTO) 1.2 % (0.0-2.0); EOSINOPHILS # (AUTO) 0.5 K/uL (0-0.4); EOSINOPHILS % (AUTO) 5.4 % (0.0-4.0); HEMATOCRIT 23.5 % (36-48); HEMOGLOBIN 8.1 g/dL (12.0-16.0); LYMPHOCYTES % (AUTO) 22.8 % (20.5-51.1); MEAN CORPUSCULAR HEMOGLOBIN 29 pg (27-31); MEAN CORPUSCULAR HGB CONC 35 g/dL (33-37); MEAN CORPUSCULAR VOLUME 83.2 fL (80-94); MONOCYTES # (AUTO) 0.9 K/uL (0.8-1.0); MONOCYTES % (AUTO) 10.8 % (1.7-9.3); NEUTROPHILS # (AUTO) 5.2 K/uL (1.8-7.7); NEUTROPHILS % (AUTO) 59.8 % (42.2-75.2); PLATELET COUNT (AUTO) 342 K/uL (140-450); RED BLOOD CELL COUNT(AUTO) 2.82 MIL/uL (4.20-5.40); RED CELL DISTRIBUTION WIDTH 13.2 % (11.6-13.7); WHITE BLOOD COUNT (AUTO) 8.6 K/uL (4.8-10.8)
[2018-02-03 06:50] LABS: ANION GAP 13.4 (8-16); CARBON DIOXIDE 27.2 mmol/L (21-32); POTASSIUM 3.6 mmol/L (3.5-5.1)
[2018-02-03 07:21] LABS: CREATININE 4.8 mg/dL (0.6-1.3)
[2018-02-03 08:00] VITALS: BP 142/50
[2018-02-03] MEDS: amLODIPine 5 MG TAB PO SCH ×2 (09:00→21:11)
[2018-02-03] MEDS: EPOETIN ALFA IV SCH ×4 (09:00→12:03)
[2018-02-03] MEDS: FUROSEMIDE 100 MG/10 ML VIAL IV SCH ×2 (09:00→12:03)
[2018-02-03] MEDS: METOPROLOL 50 MG TAB PO SCH ×2 (09:00→21:10)
[2018-02-03] MEDS: LISINOPRIL 10 MG TAB PO SCH (09:00)
[2018-02-03] MEDS ORDERED: BISACODYL 10 MG SUPP RC PRN (09:30)
[2018-02-03] MEDS: PANTOPRAZOLE 40 MG TABEC PO SCH (09:57)
[2018-02-03] MEDS: MAGNESIUM OXIDE 400 MG TAB PO SCH (09:57)
[2018-02-03] MEDS: CALCIUM ACETATE 667 MG TAB PO SCH ×3 (09:57→16:43)
[2018-02-03] MEDS: ASPIRIN 81 MG TAB.CHEW PO SCH (09:57)
[2018-02-03] MEDS: DOCUSATE SODIUM 100 MG GELCAP PO PRN (09:58)
[2018-02-03 12:00] VITALS: BP 148/86
[2018-02-03 16:00] VITALS: BP 159/62
[2018-02-03] MEDS: GABAPENTIN 300 MG CAP PO SCH (16:43)
[2018-02-03] MEDS ORDERED: MAGNESIUM CITRATE 300 ML BTL PO SCH (20:00)
[2018-02-03 21:04] VITALS: BP 145/67
[2018-02-03] MEDS: AMITRIPTYLINE 25 MG TAB PO SCH (21:10)
[2018-02-03] MEDS: SIMVASTATIN 20 MG TAB PO SCH (21:11)
[2018-02-04 00:41] VITALS: BP 156/67
[2018-02-04] MEDS: LEVOTHYROXINE 0.1 MG TAB PO SCH (06:01)
[2018-02-04] MEDS: BLOOD GLUCOSE MONITORING 1 DEV DEV FS SCH ×4 (06:01→20:42)
[2018-02-04] MEDS: INSULIN LISPRO SLIDING SCALE 100 UNITS/ML VIAL SUBQ PRN ×4 (06:08→20:45)
[2018-02-04 06:52] LABS: BASOPHILS # (AUTO) 0.1 K/uL (0.00-0.22); BASOPHILS % (AUTO) 1.1 % (0.0-2.0); EOSINOPHILS # (AUTO) 0.4 K/uL (0-0.4); EOSINOPHILS % (AUTO) 3.9 % (0.0-4.0); HEMATOCRIT 23.8 % (36-48); HEMOGLOBIN 8.2 g/dL (12.0-16.0); LYMPHOCYTES % (AUTO) 18.4 % (20.5-51.1); MEAN CORPUSCULAR HEMOGLOBIN 29 pg (27-31); MEAN CORPUSCULAR HGB CONC 34 g/dL (33-37); MONOCYTES # (AUTO) 1.3 K/uL (0.8-1.0); MONOCYTES % (AUTO) 11.9 % (1.7-9.3); NEUTROPHILS # (AUTO) 7.2 K/uL (1.8-7.7); NEUTROPHILS % (AUTO) 64.7 % (42.2-75.2); PLATELET COUNT (AUTO) 351 K/uL (140-450); RED BLOOD CELL COUNT(AUTO) 2.87 MIL/uL (4.20-5.40); RED CELL DISTRIBUTION WIDTH 13.4 % (11.6-13.7); WHITE BLOOD COUNT (AUTO) 11.1 K/uL (4.8-10.8)
[2018-02-04 07:23] LABS: ANION GAP 13.3 (8-16); CARBON DIOXIDE 28.4 mmol/L (21-32); POTASSIUM 3.7 mmol/L (3.5-5.1)
[2018-02-04 07:38] LABS: MAGNESIUM 2.6 mg/dL (1.8-2.4); PHOSPHORUS 3.2 mg/dL (2.5-4.9)
[2018-02-04 07:45] LABS: CREATININE 4.3 mg/dL (0.6-1.3)
[2018-02-04 08:00] VITALS: BP 146/64
[2018-02-04] MEDS: CALCIUM ACETATE 667 MG TAB PO SCH ×3 (09:23→17:30)
[2018-02-04] MEDS: FUROSEMIDE 100 MG/10 ML VIAL IV SCH ×2 (09:23→12:16)
[2018-02-04] MEDS: MAGNESIUM OXIDE 400 MG TAB PO SCH (09:24)
[2018-02-04] MEDS: ASPIRIN 81 MG TAB.CHEW PO SCH (09:24)
[2018-02-04] MEDS: LISINOPRIL 10 MG TAB PO SCH (09:24)
[2018-02-04] MEDS: METOPROLOL 50 MG TAB PO SCH ×2 (09:24→20:43)
[2018-02-04] MEDS: PANTOPRAZOLE 40 MG TABEC PO SCH (09:25)
[2018-02-04] MEDS: amLODIPine 5 MG TAB PO SCH ×2 (09:26→20:42)
[2018-02-04 16:00] VITALS: BP 143/59
[2018-02-04] MEDS: GABAPENTIN 300 MG CAP PO SCH (17:30)
[2018-02-04] MEDS: AMITRIPTYLINE 25 MG TAB PO SCH (20:42)
[2018-02-04] MEDS: SIMVASTATIN 20 MG TAB PO SCH (20:43)
[2018-02-05] VITALS: BP 130/68
[2018-02-05] MEDS: LEVOTHYROXINE 0.1 MG TAB PO SCH (05:58)
[2018-02-05] MEDS: INSULIN LISPRO SLIDING SCALE 100 UNITS/ML VIAL SUBQ PRN ×4 (05:59→21:30)
[2018-02-05] MEDS: BLOOD GLUCOSE MONITORING 1 DEV DEV FS SCH ×4 (05:59→21:23)
[2018-02-05 06:54] LABS: BASOPHILS # (AUTO) 0.1 K/uL (0.00-0.22); BASOPHILS % (AUTO) 1.1 % (0.0-2.0); EOSINOPHILS # (AUTO) 0.5 K/uL (0-0.4); HEMATOCRIT 25.1 % (36-48); HEMOGLOBIN 8.4 g/dL (12.0-16.0); LYMPHOCYTES # (AUTO) 2.1 K/uL (2.5-16.5); LYMPHOCYTES % (AUTO) 17.1 % (20.5-51.1); MEAN CORPUSCULAR HEMOGLOBIN 28 pg (27-31); MEAN CORPUSCULAR HGB CONC 34 g/dL (33-37); MEAN CORPUSCULAR VOLUME 83.7 fL (80-94); MONOCYTES # (AUTO) 1.2 K/uL (0.8-1.0); MONOCYTES % (AUTO) 9.8 % (1.7-9.3); NEUTROPHILS # (AUTO) 8.5 K/uL (1.8-7.7); PLATELET COUNT (AUTO) 374 K/uL (140-450); RED CELL DISTRIBUTION WIDTH 13.5 % (11.6-13.7); WHITE BLOOD COUNT (AUTO) 12.5 K/uL (4.8-10.8)
[2018-02-05 07:20] LABS: MAGNESIUM 3.5 mg/dL (1.8-2.4); PHOSPHORUS 3.8 mg/dL (2.5-4.9)
[2018-02-05 07:25] LABS: ANION GAP 13.9 (8-16); CARBON DIOXIDE 25.8 mmol/L (21-32); POTASSIUM 3.7 mmol/L (3.5-5.1)
[2018-02-05 07:40] LABS: CREATININE 5.6 mg/dL (0.6-1.3)
[2018-02-05 08:00] VITALS: BP 147/58
[2018-02-05] MEDS: PANTOPRAZOLE 40 MG TABEC PO SCH (08:52)
[2018-02-05] MEDS: CALCIUM ACETATE 667 MG TAB PO SCH ×3 (08:52→16:39)
[2018-02-05] MEDS: ASPIRIN 81 MG TAB.CHEW PO SCH (08:52)
[2018-02-05] MEDS: FUROSEMIDE 100 MG/10 ML VIAL IV SCH ×2 (09:00→13:00)
[2018-02-05] MEDS: LISINOPRIL 10 MG TAB PO SCH (09:00)
[2018-02-05] MEDS: amLODIPine 5 MG TAB PO SCH ×2 (09:00→21:23)
[2018-02-05] MEDS: METOPROLOL 50 MG TAB PO SCH ×2 (09:00→21:23)
[2018-02-05 16:00] VITALS: BP 151/64
[2018-02-05] MEDS: GABAPENTIN 300 MG CAP PO SCH (16:39)
[2018-02-05] MEDS: AMITRIPTYLINE 25 MG TAB PO SCH (21:23)
[2018-02-05] MEDS: SIMVASTATIN 20 MG TAB PO SCH (21:24)
[2018-02-05] MEDS: EPOETIN ALFA IV SCH ×2 (21:28)
[2018-02-06] VITALS: BP 145/63
[2018-02-06] MEDS: BLOOD GLUCOSE MONITORING 1 DEV DEV FS SCH ×4 (06:01→20:59)
[2018-02-06] MEDS: INSULIN LISPRO SLIDING SCALE 100 UNITS/ML VIAL SUBQ PRN ×4 (06:01→21:02)
[2018-02-06] MEDS: LEVOTHYROXINE 0.1 MG TAB PO SCH (06:01)
[2018-02-06 08:00] VITALS: BP 135/54
[2018-02-06 08:24] LABS: BASOPHILS # (AUTO) 0.1 K/uL (0.00-0.22); BASOPHILS % (AUTO) 1.1 % (0.0-2.0); EOSINOPHILS # (AUTO) 0.2 K/uL (0-0.4); EOSINOPHILS % (AUTO) 2.2 % (0.0-4.0); HEMOGLOBIN 9.4 g/dL (12.0-16.0); LYMPHOCYTES # (AUTO) 2.3 K/uL (2.5-16.5); LYMPHOCYTES % (AUTO) 20.6 % (20.5-51.1); MEAN CORPUSCULAR HEMOGLOBIN 28 pg (27-31); MEAN CORPUSCULAR HGB CONC 34 g/dL (33-37); MEAN CORPUSCULAR VOLUME 84.3 fL (80-94); MONOCYTES # (AUTO) 0.9 K/uL (0.8-1.0); MONOCYTES % (AUTO) 7.8 % (1.7-9.3); NEUTROPHILS # (AUTO) 7.6 K/uL (1.8-7.7); NEUTROPHILS % (AUTO) 68.3 % (42.2-75.2); PLATELET COUNT (AUTO) 403 K/uL (140-450); RED BLOOD CELL COUNT(AUTO) 3.32 MIL/uL (4.20-5.40); RED CELL DISTRIBUTION WIDTH 13.7 % (11.6-13.7); WHITE BLOOD COUNT (AUTO) 11.1 K/uL (4.8-10.8)
[2018-02-06] MEDS: CALCIUM ACETATE 667 MG TAB PO SCH ×3 (08:36→16:21)
[2018-02-06] MEDS: LISINOPRIL 10 MG TAB PO SCH (08:36)
[2018-02-06] MEDS: PANTOPRAZOLE 40 MG TABEC PO SCH (08:36)
[2018-02-06] MEDS: ASPIRIN 81 MG TAB.CHEW PO SCH (08:37)
[2018-02-06] MEDS: METOPROLOL 50 MG TAB PO SCH ×2 (08:37→20:58)
[2018-02-06] MEDS: amLODIPine 5 MG TAB PO SCH ×2 (08:37→20:59)
[2018-02-06] MEDS: FUROSEMIDE 100 MG/10 ML VIAL IV SCH ×2 (08:38→12:22)
[2018-02-06 08:47] LABS: ANION GAP 12.5 (8-16); CARBON DIOXIDE 25.9 mmol/L (21-32); CREATININE 3.6 mg/dL (0.6-1.3); POTASSIUM 3.4 mmol/L (3.5-5.1)
[2018-02-06 08:52] LABS: MAGNESIUM 2.7 mg/dL (1.8-2.4); PHOSPHORUS 2.6 mg/dL (2.5-4.9)
[2018-02-06 16:00] VITALS: BP 147/74
[2018-02-06] MEDS: GABAPENTIN 300 MG CAP PO SCH (16:21)
[2018-02-06] MEDS: SIMVASTATIN 20 MG TAB PO SCH (20:58)
[2018-02-06] MEDS: AMITRIPTYLINE 25 MG TAB PO SCH (20:58)
[2018-02-07] VITALS: BP 146/65
[2018-02-07 04:00] VITALS: BP 130/58
[2018-02-07] MEDS: LEVOTHYROXINE 0.1 MG TAB PO SCH (05:52)
[2018-02-07] MEDS: BLOOD GLUCOSE MONITORING 1 DEV DEV FS SCH ×4 (05:56→20:47)
[2018-02-07] MEDS: INSULIN LISPRO SLIDING SCALE 100 UNITS/ML VIAL SUBQ PRN ×4 (05:58→20:29)
[2018-02-07 07:30] LABS: BASOPHILS # (AUTO) 0.1 K/uL (0.00-0.22); BASOPHILS % (AUTO) 1.3 % (0.0-2.0); EOSINOPHILS # (AUTO) 0.4 K/uL (0-0.4); EOSINOPHILS % (AUTO) 3.8 % (0.0-4.0); HEMATOCRIT 25.7 % (36-48); HEMOGLOBIN 8.6 g/dL (12.0-16.0); LYMPHOCYTES % (AUTO) 19.7 % (20.5-51.1); MEAN CORPUSCULAR HEMOGLOBIN 28 pg (27-31); MEAN CORPUSCULAR HGB CONC 33 g/dL (33-37); MEAN CORPUSCULAR VOLUME 84.2 fL (80-94); MONOCYTES % (AUTO) 10.3 % (1.7-9.3); NEUTROPHILS # (AUTO) 6.6 K/uL (1.8-7.7); NEUTROPHILS % (AUTO) 64.9 % (42.2-75.2); PLATELET COUNT (AUTO) 372 K/uL (140-450); RED BLOOD CELL COUNT(AUTO) 3.05 MIL/uL (4.20-5.40); RED CELL DISTRIBUTION WIDTH 13.8 % (11.6-13.7); WHITE BLOOD COUNT (AUTO) 10.1 K/uL (4.8-10.8)
[2018-02-07 07:36] LABS: ANION GAP 12.3 (8-16); CARBON DIOXIDE 24.3 mmol/L (21-32); POTASSIUM 3.6 mmol/L (3.5-5.1)
[2018-02-07 07:41] LABS: CREATININE 4.7 mg/dL (0.6-1.3)
[2018-02-07 07:46] LABS: MAGNESIUM 2.8 mg/dL (1.8-2.4); PHOSPHORUS 3.7 mg/dL (2.5-4.9)
[2018-02-07] MEDS: amLODIPine 5 MG TAB PO SCH ×2 (08:23→20:25)
[2018-02-07] MEDS: ASPIRIN 81 MG TAB.CHEW PO SCH (08:24)
[2018-02-07] MEDS: METOPROLOL 50 MG TAB PO SCH ×2 (08:24→20:26)
[2018-02-07] MEDS: LISINOPRIL 10 MG TAB PO SCH (08:24)
[2018-02-07] MEDS: CALCIUM ACETATE 667 MG TAB PO SCH ×3 (08:24→16:59)
[2018-02-07] MEDS: PANTOPRAZOLE 40 MG TABEC PO SCH (08:24)
[2018-02-07] MEDS: FUROSEMIDE 100 MG/10 ML VIAL IV SCH ×2 (08:25→12:19)
[2018-02-07 16:00] VITALS: BP 127/54
[2018-02-07] MEDS: GABAPENTIN 300 MG CAP PO SCH (16:58)
[2018-02-07 20:00] VITALS: BP 144/63
[2018-02-07] MEDS: AMITRIPTYLINE 25 MG TAB PO SCH (20:25)
[2018-02-07] MEDS: SIMVASTATIN 20 MG TAB PO SCH (20:26)
[2018-02-08] VITALS: BP 139/58
[2018-02-08] MEDS: LEVOTHYROXINE 0.1 MG TAB PO SCH (06:00)
[2018-02-08] MEDS: BLOOD GLUCOSE MONITORING 1 DEV DEV FS SCH ×4 (06:00→21:25)
[2018-02-08] MEDS: INSULIN LISPRO SLIDING SCALE 100 UNITS/ML VIAL SUBQ PRN ×4 (06:05→21:27)
[2018-02-08 06:44] LABS: ANION GAP 11.7 (8-16); CARBON DIOXIDE 24.3 mmol/L (21-32)
[2018-02-08 08:00] VITALS: BP 135/60
[2018-02-08] MEDS: METOPROLOL 50 MG TAB PO SCH ×2 (09:00→21:49)
[2018-02-08] MEDS: amLODIPine 5 MG TAB PO SCH ×2 (09:00→21:49)
[2018-02-08] MEDS: LISINOPRIL 10 MG TAB PO SCH (09:00)
[2018-02-08] MEDS: FUROSEMIDE 100 MG/10 ML VIAL IV SCH ×2 (09:00→13:00)
[2018-02-08] MEDS: ASPIRIN 81 MG TAB.CHEW PO SCH (09:32)
[2018-02-08] MEDS: CALCIUM ACETATE 667 MG TAB PO SCH ×3 (09:32→17:31)
[2018-02-08] MEDS: PANTOPRAZOLE 40 MG TABEC PO SCH (09:33)
[2018-02-08 16:00] VITALS: BP 138/91
[2018-02-08] MEDS ORDERED: MAGNESIUM CITRATE 300 ML BTL PO SCH (17:10)
[2018-02-08] MEDS: GABAPENTIN 300 MG CAP PO SCH (17:31)
[2018-02-08 20:00] VITALS: BP 156/66
[2018-02-08] MEDS: SIMVASTATIN 20 MG TAB PO SCH (21:11)
[2018-02-08] MEDS: AMITRIPTYLINE 25 MG TAB PO SCH (21:11)
[2018-02-08] MEDS: EPOETIN ALFA IV SCH ×2 (21:48)
[2018-02-09] VITALS: BP 138/56
[2018-02-09] MEDS: LEVOTHYROXINE 0.1 MG TAB PO SCH (05:54)
[2018-02-09] MEDS: BLOOD GLUCOSE MONITORING 1 DEV DEV FS SCH ×4 (05:58→21:27)
[2018-02-09] MEDS: INSULIN LISPRO SLIDING SCALE 100 UNITS/ML VIAL SUBQ PRN ×4 (06:18→21:26)
[2018-02-09 06:45] LABS: BASOPHILS # (AUTO) 0.1 K/uL (0.00-0.22); EOSINOPHILS # (AUTO) 0.2 K/uL (0-0.4); EOSINOPHILS % (AUTO) 2.3 % (0.0-4.0); HEMATOCRIT 25.1 % (36-48); HEMOGLOBIN 8.6 g/dL (12.0-16.0); LYMPHOCYTES # (AUTO) 1.7 K/uL (2.5-16.5); LYMPHOCYTES % (AUTO) 16.1 % (20.5-51.1); MEAN CORPUSCULAR HEMOGLOBIN 29 pg (27-31); MEAN CORPUSCULAR HGB CONC 34 g/dL (33-37); MEAN CORPUSCULAR VOLUME 83.6 fL (80-94); MONOCYTES # (AUTO) 0.9 K/uL (0.8-1.0); MONOCYTES % (AUTO) 8.8 % (1.7-9.3); NEUTROPHILS # (AUTO) 7.5 K/uL (1.8-7.7); NEUTROPHILS % (AUTO) 71.8 % (42.2-75.2); PLATELET COUNT (AUTO) 370 K/uL (140-450); RED CELL DISTRIBUTION WIDTH 14.1 % (11.6-13.7); WHITE BLOOD COUNT (AUTO) 10.5 K/uL (4.8-10.8)
[2018-02-09 07:11] LABS: ANION GAP 11.3 (8-16); CARBON DIOXIDE 28.5 mmol/L (21-32); CREATININE 3.5 mg/dL (0.6-1.3); POTASSIUM 3.8 mmol/L (3.5-5.1)
[2018-02-09 07:17] LABS: MAGNESIUM 2.3 mg/dL (1.8-2.4); PHOSPHORUS 2.6 mg/dL (2.5-4.9)
[2018-02-09 08:00] VITALS: BP 147/63
[2018-02-09] MEDS: CALCIUM ACETATE 667 MG TAB PO SCH ×3 (08:00→17:14)
[2018-02-09] MEDS: ASPIRIN 81 MG TAB.CHEW PO SCH (10:11)
[2018-02-09] MEDS: amLODIPine 5 MG TAB PO SCH ×2 (10:11→21:15)
[2018-02-09] MEDS: METOPROLOL 50 MG TAB PO SCH ×2 (10:11→21:15)
[2018-02-09] MEDS: PANTOPRAZOLE 40 MG TABEC PO SCH (10:12)
[2018-02-09] MEDS: LISINOPRIL 10 MG TAB PO SCH (10:12)
[2018-02-09] MEDS: FUROSEMIDE 100 MG/10 ML VIAL IV SCH (10:14)
[2018-02-09 16:00] VITALS: BP 138/60
[2018-02-09] MEDS: GABAPENTIN 300 MG CAP PO SCH (17:14)
[2018-02-09] MEDS: AMITRIPTYLINE 25 MG TAB PO SCH (21:15)
[2018-02-09] MEDS: SIMVASTATIN 20 MG TAB PO SCH (21:15)
[2018-02-10 00:01] VITALS: BP 153/62
[2018-02-10] MEDS: LEVOTHYROXINE 0.1 MG TAB PO SCH (06:27)
[2018-02-10] MEDS: BLOOD GLUCOSE MONITORING 1 DEV DEV FS SCH ×4 (06:30→21:05)
[2018-02-10] MEDS: INSULIN LISPRO SLIDING SCALE 100 UNITS/ML VIAL SUBQ PRN ×4 (06:35→21:20)
[2018-02-10 07:00] LABS: BASOPHILS # (AUTO) 0.1 K/uL (0.00-0.22); BASOPHILS % (AUTO) 1.5 % (0.0-2.0); EOSINOPHILS # (AUTO) 0.3 K/uL (0-0.4); EOSINOPHILS % (AUTO) 3.5 % (0.0-4.0); HEMATOCRIT 24.6 % (36-48); HEMOGLOBIN 8.4 g/dL (12.0-16.0); LYMPHOCYTES # (AUTO) 1.9 K/uL (2.5-16.5); LYMPHOCYTES % (AUTO) 19.5 % (20.5-51.1); MEAN CORPUSCULAR HEMOGLOBIN 29 pg (27-31); MEAN CORPUSCULAR HGB CONC 34 g/dL (33-37); MEAN CORPUSCULAR VOLUME 84.5 fL (80-94); MONOCYTES # (AUTO) 0.7 K/uL (0.8-1.0); MONOCYTES % (AUTO) 7.7 % (1.7-9.3); NEUTROPHILS # (AUTO) 6.6 K/uL (1.8-7.7); NEUTROPHILS % (AUTO) 67.8 % (42.2-75.2); PLATELET COUNT (AUTO) 359 K/uL (140-450); RED BLOOD CELL COUNT(AUTO) 2.91 MIL/uL (4.20-5.40); RED CELL DISTRIBUTION WIDTH 14.2 % (11.6-13.7); WHITE BLOOD COUNT (AUTO) 9.7 K/uL (4.8-10.8)
[2018-02-10 07:24] LABS: ANION GAP 11.7 (8-16); CARBON DIOXIDE 27.3 mmol/L (21-32)
[2018-02-10 07:37] LABS: CREATININE 4.7 mg/dL (0.6-1.3)
[2018-02-10 08:00] VITALS: BP 131/67
[2018-02-10] MEDS: amLODIPine 5 MG TAB PO SCH ×2 (09:00→21:23)
[2018-02-10] MEDS: METOPROLOL 50 MG TAB PO SCH ×2 (09:00→21:04)
[2018-02-10] MEDS: LISINOPRIL 10 MG TAB PO SCH (09:00)
[2018-02-10] MEDS: CALCIUM ACETATE 667 MG TAB PO SCH ×3 (09:18→16:38)
[2018-02-10] MEDS: ASPIRIN 81 MG TAB.CHEW PO SCH (09:18)
[2018-02-10] MEDS: PANTOPRAZOLE 40 MG TABEC PO SCH (09:19)
[2018-02-10] MEDS: EPOETIN ALFA IV SCH ×4 (12:29→12:34)
[2018-02-10 16:00] VITALS: BP 145/55
[2018-02-10] MEDS: GABAPENTIN 300 MG CAP PO SCH (16:38)
[2018-02-10 21:00] VITALS: BP 144/78
[2018-02-10] MEDS: AMITRIPTYLINE 25 MG TAB PO SCH (21:04)
[2018-02-10] MEDS: SIMVASTATIN 20 MG TAB PO SCH (21:04)
[2018-02-11] VITALS: BP 102/54
[2018-02-11] MEDS: LEVOTHYROXINE 0.1 MG TAB PO SCH (06:01)
[2018-02-11] MEDS: BLOOD GLUCOSE MONITORING 1 DEV DEV FS SCH ×4 (06:03→20:20)
[2018-02-11] MEDS: INSULIN LISPRO SLIDING SCALE 100 UNITS/ML VIAL SUBQ PRN ×4 (06:06→20:28)
[2018-02-11 08:00] VITALS: BP 130/55
[2018-02-11] MEDS: CALCIUM ACETATE 667 MG TAB PO SCH ×3 (08:17→17:54)
[2018-02-11] MEDS: LISINOPRIL 10 MG TAB PO SCH (08:17)
[2018-02-11] MEDS: ASPIRIN 81 MG TAB.CHEW PO SCH (08:17)
[2018-02-11] MEDS: PANTOPRAZOLE 40 MG TABEC PO SCH (08:18)
[2018-02-11] MEDS: amLODIPine 5 MG TAB PO SCH ×2 (08:18→20:20)
[2018-02-11] MEDS: METOPROLOL 50 MG TAB PO SCH ×2 (08:18→20:21)
[2018-02-11 16:00] VITALS: BP 108/67
[2018-02-11] MEDS: GABAPENTIN 300 MG CAP PO SCH (17:54)
[2018-02-11] MEDS: SIMVASTATIN 20 MG TAB PO SCH (20:20)
[2018-02-11] MEDS: AMITRIPTYLINE 25 MG TAB PO SCH (20:20)
[2018-02-12 00:33] VITALS: BP 152/66
[2018-02-12] MEDS: LEVOTHYROXINE 0.1 MG TAB PO SCH (05:58)
[2018-02-12] MEDS: BLOOD GLUCOSE MONITORING 1 DEV DEV FS SCH ×2 (05:59→20:49)
[2018-02-12] MEDS: INSULIN LISPRO SLIDING SCALE 100 UNITS/ML VIAL SUBQ PRN ×4 (06:03→21:02)
[2018-02-12 06:38] LABS: BASOPHILS # (AUTO) 0.2 K/uL (0.00-0.22); BASOPHILS % (AUTO) 2.3 % (0.0-2.0); EOSINOPHILS # (AUTO) 0.3 K/uL (0-0.4); EOSINOPHILS % (AUTO) 3.3 % (0.0-4.0); HEMATOCRIT 25.1 % (36-48); HEMOGLOBIN 8.5 g/dL (12.0-16.0); LYMPHOCYTES # (AUTO) 1.8 K/uL (2.5-16.5); LYMPHOCYTES % (AUTO) 19.7 % (20.5-51.1); MEAN CORPUSCULAR HEMOGLOBIN 28 pg (27-31); MEAN CORPUSCULAR HGB CONC 34 g/dL (33-37); MEAN CORPUSCULAR VOLUME 82.5 fL (80-94); MONOCYTES # (AUTO) 0.6 K/uL (0.8-1.0); MONOCYTES % (AUTO) 6.5 % (1.7-9.3); NEUTROPHILS # (AUTO) 6.2 K/uL (1.8-7.7); NEUTROPHILS % (AUTO) 68.2 % (42.2-75.2); PLATELET COUNT (AUTO) 396 K/uL (140-450); RED BLOOD CELL COUNT(AUTO) 3.04 MIL/uL (4.20-5.40); RED CELL DISTRIBUTION WIDTH 13.7 % (11.6-13.7); WHITE BLOOD COUNT (AUTO) 9.1 K/uL (4.8-10.8)
[2018-02-12 06:43] LABS: ANION GAP 11.2 (8-16); CARBON DIOXIDE 27.2 mmol/L (21-32); CREATININE 4.7 mg/dL (0.6-1.3); POTASSIUM 4.4 mmol/L (3.5-5.1)
[2018-02-12 06:51] LABS: MAGNESIUM 2.6 mg/dL (1.8-2.4); PHOSPHORUS 4.5 mg/dL (2.5-4.9)
[2018-02-12 08:00] VITALS: BP 128/51
[2018-02-12] MEDS: ASPIRIN 81 MG TAB.CHEW PO SCH (10:08)
[2018-02-12] MEDS: METOPROLOL 50 MG TAB PO SCH ×2 (10:08→20:57)
[2018-02-12] MEDS: LISINOPRIL 10 MG TAB PO SCH (10:08)
[2018-02-12] MEDS: PANTOPRAZOLE 40 MG TABEC PO SCH (10:09)
[2018-02-12] MEDS: amLODIPine 5 MG TAB PO SCH ×2 (10:09→20:57)
[2018-02-12] MEDS: CALCIUM ACETATE 667 MG TAB PO SCH ×3 (10:10→17:00)
[2018-02-12] MEDS: SODIUM FERRIC GLUCONATE 125 MG in NACL 0.9% 100 ML IV SCH (12:26)
[2018-02-12 16:00] VITALS: BP 158/64
[2018-02-12] MEDS ORDERED: MAGNESIUM CITRATE 300 ML BTL PO PRN (16:40)
[2018-02-12] MEDS: EPOETIN ALFA IV SCH ×2 (19:39)
[2018-02-12] MEDS: AMITRIPTYLINE 25 MG TAB PO SCH (20:56)
[2018-02-12] MEDS: GABAPENTIN 300 MG CAP PO SCH (20:56)
[2018-02-12] MEDS: SIMVASTATIN 20 MG TAB PO SCH (20:57)
[2018-02-13] VITALS: BP 140/53
[2018-02-13] MEDS: LEVOTHYROXINE 0.1 MG TAB PO SCH (06:00)
[2018-02-13] MEDS: INSULIN LISPRO SLIDING SCALE 100 UNITS/ML VIAL SUBQ PRN ×4 (06:04→21:16)
[2018-02-13] MEDS: BLOOD GLUCOSE MONITORING 1 DEV DEV FS SCH ×4 (06:37→21:17)
[2018-02-13 07:54] VITALS: BP 114/51
[2018-02-13] MEDS: VIT-B COMP/VIT-C/FOLIC ACID 1 TAB PO SCH (08:30)
[2018-02-13] MEDS: LISINOPRIL 10 MG TAB PO SCH (08:31)
[2018-02-13] MEDS: CALCIUM ACETATE 667 MG TAB PO SCH ×3 (08:31→17:51)
[2018-02-13] MEDS: amLODIPine 5 MG TAB PO SCH ×2 (08:32→21:12)
[2018-02-13] MEDS: METOPROLOL 50 MG TAB PO SCH ×2 (08:32→21:12)
[2018-02-13] MEDS: PANTOPRAZOLE 40 MG TABEC PO SCH (08:32)
[2018-02-13] MEDS: ASPIRIN 81 MG TAB.CHEW PO SCH (08:32)
[2018-02-13] MEDS: INSULIN LANTUS 100 UNITS/ML 10 ML VIAL SUBQ SCH (10:35)
[2018-02-13] MEDS: SODIUM FERRIC GLUCONATE 125 MG in NACL 0.9% 100 ML IV SCH (12:32)
[2018-02-13 16:00] VITALS: BP 174/67
[2018-02-13] MEDS: GABAPENTIN 300 MG CAP PO SCH (17:51)
[2018-02-13] MEDS: AMITRIPTYLINE 25 MG TAB PO SCH (21:12)
[2018-02-13] MEDS: SIMVASTATIN 20 MG TAB PO SCH (21:12)
[2018-02-14 00:30] VITALS: BP 120/49
[2018-02-14] MEDS: LEVOTHYROXINE 0.1 MG TAB PO SCH (05:54)
[2018-02-14] MEDS: INSULIN LISPRO SLIDING SCALE 100 UNITS/ML VIAL SUBQ PRN ×4 (05:57→20:18)
[2018-02-14] MEDS: BLOOD GLUCOSE MONITORING 1 DEV DEV FS SCH ×4 (07:30→21:00)
[2018-02-14 08:00] VITALS: BP 152/54
[2018-02-14] MEDS: amLODIPine 5 MG TAB PO SCH ×2 (08:44→20:13)
[2018-02-14] MEDS: LISINOPRIL 10 MG TAB PO SCH (08:45)
[2018-02-14] MEDS: PANTOPRAZOLE 40 MG TABEC PO SCH (08:45)
[2018-02-14] MEDS: VIT-B COMP/VIT-C/FOLIC ACID 1 TAB PO SCH (08:45)
[2018-02-14] MEDS: ASPIRIN 81 MG TAB.CHEW PO SCH (08:45)
[2018-02-14] MEDS: CALCIUM ACETATE 667 MG TAB PO SCH ×3 (08:45→17:03)
[2018-02-14] MEDS: METOPROLOL 50 MG TAB PO SCH ×2 (08:46→20:14)
[2018-02-14] MEDS: INSULIN LANTUS 100 UNITS/ML 10 ML VIAL SUBQ SCH (09:14)
[2018-02-14] MEDS: SODIUM FERRIC GLUCONATE 125 MG in NACL 0.9% 100 ML IV SCH (12:08)
[2018-02-14] MEDS ORDERED: SODIUM FERRIC GLUCONATE 12.5 MG/ML AMP IV ONE (12:08)
[2018-02-14 16:00] VITALS: BP 158/66
[2018-02-14] MEDS: GABAPENTIN 300 MG CAP PO SCH (17:04)
[2018-02-14] MEDS: SIMVASTATIN 20 MG TAB PO SCH (20:13)
[2018-02-14] MEDS: AMITRIPTYLINE 25 MG TAB PO SCH (20:13)
[2018-02-15] VITALS: BP 120/83
[2018-02-15 05:46] LABS: BASOPHILS # (AUTO) 0.1 K/uL (0.00-0.22); BASOPHILS % (AUTO) 1.4 % (0.0-2.0); EOSINOPHILS # (AUTO) 0.3 K/uL (0-0.4); EOSINOPHILS % (AUTO) 3.5 % (0.0-4.0); HEMATOCRIT 26.1 % (36-48); LYMPHOCYTES # (AUTO) 1.6 K/uL (2.5-16.5); LYMPHOCYTES % (AUTO) 18.7 % (20.5-51.1); MEAN CORPUSCULAR HEMOGLOBIN 28 pg (27-31); MEAN CORPUSCULAR HGB CONC 34 g/dL (33-37); MEAN CORPUSCULAR VOLUME 82.6 fL (80-94); MONOCYTES # (AUTO) 0.7 K/uL (0.8-1.0); MONOCYTES % (AUTO) 7.8 % (1.7-9.3); NEUTROPHILS # (AUTO) 5.9 K/uL (1.8-7.7); NEUTROPHILS % (AUTO) 68.6 % (42.2-75.2); PLATELET COUNT (AUTO) 407 K/uL (140-450); RED BLOOD CELL COUNT(AUTO) 3.16 MIL/uL (4.20-5.40); RED CELL DISTRIBUTION WIDTH 14.3 % (11.6-13.7); WHITE BLOOD COUNT (AUTO) 8.6 K/uL (4.8-10.8)
[2018-02-15] MEDS: LEVOTHYROXINE 0.1 MG TAB PO SCH (05:46)
[2018-02-15] MEDS: INSULIN LISPRO SLIDING SCALE 100 UNITS/ML VIAL SUBQ PRN ×2 (06:00→17:32)
[2018-02-15 06:19] LABS: CARBON DIOXIDE 23.2 mmol/L (21-32); POTASSIUM 4.2 mmol/L (3.5-5.1)
[2018-02-15 06:23] LABS: CREATININE 5.5 mg/dL (0.6-1.3)
[2018-02-15] MEDS: BLOOD GLUCOSE MONITORING 1 DEV DEV FS SCH ×4 (06:46→20:57)
[2018-02-15 08:00] VITALS: BP 132/62
[2018-02-15] MEDS: VIT-B COMP/VIT-C/FOLIC ACID 1 TAB PO SCH (08:54)
[2018-02-15] MEDS: ASPIRIN 81 MG TAB.CHEW PO SCH (08:54)
[2018-02-15] MEDS: CALCIUM ACETATE 667 MG TAB PO SCH ×3 (08:54→17:15)
[2018-02-15] MEDS: PANTOPRAZOLE 40 MG TABEC PO SCH (08:54)
[2018-02-15] MEDS: INSULIN LANTUS 100 UNITS/ML 10 ML VIAL SUBQ SCH (09:00)
[2018-02-15] MEDS: METOPROLOL 50 MG TAB PO SCH ×2 (09:00→20:54)
[2018-02-15] MEDS: LISINOPRIL 10 MG TAB PO SCH (09:00)
[2018-02-15] MEDS: amLODIPine 5 MG TAB PO SCH ×2 (09:00→20:54)
[2018-02-15] MEDS: SODIUM FERRIC GLUCONATE 125 MG in NACL 0.9% 100 ML IV SCH (12:32)
[2018-02-15 16:00] VITALS: BP 141/81
[2018-02-15] MEDS: EPOETIN ALFA IV SCH ×2 (17:15)
[2018-02-15] MEDS: GABAPENTIN 300 MG CAP PO SCH (17:15)
[2018-02-15] MEDS: AMITRIPTYLINE 25 MG TAB PO SCH (20:54)
[2018-02-15] MEDS: SIMVASTATIN 20 MG TAB PO SCH (20:54)
[2018-02-16] VITALS: BP 127/59
[2018-02-16] MEDS: BLOOD GLUCOSE MONITORING 1 DEV DEV FS SCH ×4 (06:08→20:12)
[2018-02-16] MEDS: INSULIN LISPRO SLIDING SCALE 100 UNITS/ML VIAL SUBQ PRN ×4 (06:12→20:17)
[2018-02-16] MEDS: LEVOTHYROXINE 0.1 MG TAB PO SCH (06:20)
[2018-02-16 08:00] VITALS: BP 142/68
[2018-02-16] MEDS: METOPROLOL 50 MG TAB PO SCH ×2 (09:49→20:11)
[2018-02-16] MEDS: LISINOPRIL 10 MG TAB PO SCH (09:49)
[2018-02-16] MEDS: VIT-B COMP/VIT-C/FOLIC ACID 1 TAB PO SCH (09:58)
[2018-02-16] MEDS: ASPIRIN 81 MG TAB.CHEW PO SCH (09:59)
[2018-02-16] MEDS: amLODIPine 5 MG TAB PO SCH ×2 (09:59→20:12)
[2018-02-16] MEDS: CALCIUM ACETATE 667 MG TAB PO SCH ×3 (09:59→17:28)
[2018-02-16] MEDS: PANTOPRAZOLE 40 MG TABEC PO SCH (09:59)
[2018-02-16] MEDS: INSULIN LANTUS 100 UNITS/ML 10 ML VIAL SUBQ SCH (10:10)
[2018-02-16] MEDS: SODIUM FERRIC GLUCONATE 125 MG in NACL 0.9% 100 ML IV SCH (12:33)
[2018-02-16 16:00] VITALS: BP 137/71
[2018-02-16] MEDS: GABAPENTIN 300 MG CAP PO SCH (17:28)
[2018-02-16] MEDS: SIMVASTATIN 20 MG TAB PO SCH (20:12)
[2018-02-16] MEDS: AMITRIPTYLINE 25 MG TAB PO SCH (20:12)
[2018-02-17 00:14] VITALS: BP 123/80
[2018-02-17] MEDS: LEVOTHYROXINE 0.1 MG TAB PO SCH (05:37)
[2018-02-17] MEDS: BLOOD GLUCOSE MONITORING 1 DEV DEV FS SCH ×3 (05:39→17:17)
[2018-02-17] MEDS: INSULIN LISPRO SLIDING SCALE 100 UNITS/ML VIAL SUBQ PRN ×2 (05:43→12:23)
[2018-02-17 08:00] VITALS: BP 152/64
[2018-02-17] MEDS: INSULIN LANTUS 100 UNITS/ML 10 ML VIAL SUBQ SCH (11:08)
[2018-02-17] MEDS: VIT-B COMP/VIT-C/FOLIC ACID 1 TAB PO SCH (11:08)
[2018-02-17] MEDS: LISINOPRIL 10 MG TAB PO SCH (11:09)
[2018-02-17] MEDS: METOPROLOL 50 MG TAB PO SCH (11:09)
[2018-02-17] MEDS: ASPIRIN 81 MG TAB.CHEW PO SCH (11:09)
[2018-02-17] MEDS: PANTOPRAZOLE 40 MG TABEC PO SCH (11:10)
[2018-02-17] MEDS: amLODIPine 5 MG TAB PO SCH (11:10)
[2018-02-17] MEDS: CALCIUM ACETATE 667 MG TAB PO SCH ×2 (11:10→12:25)
[2018-02-17] MEDS: EPOETIN ALFA IV SCH ×2 (11:11)
[2018-02-17] MEDS ORDERED: ELA25 PO (13:49)
[2018-02-17] MEDS ORDERED: METO50TA99 PO (13:49)
[2018-02-17] MEDS ORDERED: LISI10TA11 PO (13:49)
[2018-02-17 16:00] VITALS: BP 134/54
== END 2018-02-17 17:00 | disposition home or self-care (01) | DRG 291 ==
LOC: MED 17:19 → MTU 18:48
PROVIDERS: ADMIT General Practice; ATTEND General Practice
PROC: 5A1D70Z Performance of Urinary Filtration, Intermittent, Less than 6 Hours Per Day (ICD-10-PCS; principal; 2018-01-24)
PROC: 02H633Z Insertion of Infusion Device into Right Atrium, Percutaneous Approach (ICD-10-PCS; 2018-01-26)
PROC: B244ZZZ Ultrasonography of Right Heart (ICD-10-PCS; 2018-01-26)
PROC: 5A1D70Z Performance of Urinary Filtration, Intermittent, Less than 6 Hours Per Day (ICD-10-PCS; 2018-01-27)
PROC: 5A1D70Z Performance of Urinary Filtration, Intermittent, Less than 6 Hours Per Day (ICD-10-PCS; 2018-02-01)
PROC: 5A1D70Z Performance of Urinary Filtration, Intermittent, Less than 6 Hours Per Day (ICD-10-PCS; 2018-02-01)
PROC: 0JH63XZ Insertion of Tunneled Vascular Access Device into Chest Subcutaneous Tissue and Fascia, Percutaneous Approach (ICD-10-PCS; 2018-02-01)
PROC: 02HV33Z Insertion of Infusion Device into Superior Vena Cava, Percutaneous Approach (ICD-10-PCS; 2018-02-01)
PROC: 05PYX3Z Removal of Infusion Device from Upper Vein, External Approach (ICD-10-PCS; 2018-02-01)
PROC: 5A1D70Z Performance of Urinary Filtration, Intermittent, Less than 6 Hours Per Day (ICD-10-PCS; 2018-02-03)
PROC: 5A1D70Z Performance of Urinary Filtration, Intermittent, Less than 6 Hours Per Day (ICD-10-PCS; 2018-02-05)
PROC: 5A1D70Z Performance of Urinary Filtration, Intermittent, Less than 6 Hours Per Day (ICD-10-PCS; 2018-02-05)
PROC: 5A1D70Z Performance of Urinary Filtration, Intermittent, Less than 6 Hours Per Day (ICD-10-PCS; 2018-02-08)
PROC: 5A1D70Z Performance of Urinary Filtration, Intermittent, Less than 6 Hours Per Day (ICD-10-PCS; 2018-02-10)
PROC: 5A1D70Z Performance of Urinary Filtration, Intermittent, Less than 6 Hours Per Day (ICD-10-PCS; 2018-02-12)
PROC: 5A1D70Z Performance of Urinary Filtration, Intermittent, Less than 6 Hours Per Day (ICD-10-PCS; 2018-02-15)
PROC: 5A1D70Z Performance of Urinary Filtration, Intermittent, Less than 6 Hours Per Day (ICD-10-PCS; 2018-02-17)
DX: I13.2 Hypertensive heart and chronic kidney disease with heart failure and with stage 5 chronic kidney disease, or end stage renal disease (principal); I50.43 Acute on chronic combined systolic (congestive) and diastolic (congestive) heart failure; N17.0 Acute kidney failure with tubular necrosis; E43 Unspecified severe protein-calorie malnutrition; G82.50 Quadriplegia, unspecified; N18.6 End stage renal disease; E87.1 Hypo-osmolality and hyponatremia; E11.52 Type 2 diabetes mellitus with diabetic peripheral angiopathy with gangrene; D68.59 Other primary thrombophilia; K21.9 Gastro-esophageal reflux disease without esophagitis; E11.65 Type 2 diabetes mellitus with hyperglycemia; E87.6 Hypokalemia; E78.5 Hyperlipidemia, unspecified; E03.9 Hypothyroidism, unspecified; E11.22 Type 2 diabetes mellitus with diabetic chronic kidney disease; E66.3 Overweight; L89.90 Pressure ulcer of unspecified site, unspecified stage; M47.9 Spondylosis, unspecified; E87.8 Other disorders of electrolyte and fluid balance, not elsewhere classified; E11.21 Type 2 diabetes mellitus with diabetic nephropathy; K64.9 Unspecified hemorrhoids; E83.39 Other disorders of phosphorus metabolism; D63.1 Anemia in chronic kidney disease; E83.42 Hypomagnesemia; K59.00 Constipation, unspecified; E11.51 Type 2 diabetes mellitus with diabetic peripheral angiopathy without gangrene; Z74.01 Bed confinement status; Z99.2 Dependence on renal dialysis; Z68.27 Body mass index [BMI] 27.0-27.9, adult; Z83.3 Family history of diabetes mellitus; Z82.49 Family history of ischemic heart disease and other diseases of the circulatory system; Z79.4 Long term (current) use of insulin
CPT/HCPCS: 36415; 71045; 74018; 76604; 80048; 80053; 80305; 81001; 82140; 82150; 82550; 82553; 82728; 82948; 83036; 83540; 83605; 83690; 83735; 83880; 83930; 83935; 84100; 84295; 84300; 84436; 84439; 84443; 84479; 84484; 85025; 85610; 85730; 86592; 86704; 86706; 86708; 86709; 86803; 87081; 87086; 87340; 90935; 93005; 93925; 93970; 96361; 96374; 97110; 97116; 97140; 97530; 99285; C1750; C1758; G0482; J0360; J0690; J0885; J1642; J1644; J1815; J1940; J2001; J2150; J2250; J2550; J2765; J2916; J3010; J3475; J3490; J7030; Q0092

== ENCOUNTER 2020-09-28 16:27 | Emergency (ER) | payer MEDICAID, OTHER ==
[~2020-09-28] VITALS: Ht 152.4 cm; Wt 61.7 kg
[~2020-09-28 16:27] MED LIST: AMIT25TA39 PO; AMLO5TAB PO; HUM SUBQ; LISI10TA11 PO; METO50TA99 PO; SYN.1 PO
[2020-09-28 16:30] VITALS: BP 136/71
--- NOTE | 2020-09-28 16:38 | NUR ---
FROM HOME, RAN INTO CLOSET 1 WEEK AGO AND HAS 2 WOUNDS ON L SHOULDER WELL L FOREARM REDNESS. [place] A/V SHUNT NOTED; BRUIT+ THRILL+. Hx HTN, DM, ESRD MWF, LAST DIALYZED TODAY. KARRI
[2020-09-28] MEDS ORDERED: KETOROLAC 60 MG/2 ML VIAL IM ONE (16:50)
[2020-09-28 18:01] VITALS: BP 135/69
--- NOTE | 2020-09-28 18:02 | NUR ---
cleared for d/c by Dr Vu; d/c with prescription & instructions on Clavicular Fracture also explained to the son; pt & son fully understand all materials given re c/c, has no further questions; aox4; VSS; ambulatory with steady gait; no signs of acute distress
== END 2020-09-28 18:02 | disposition home or self-care (01) ==
LOC: MED 16:27
DX: S42.92XA Fracture of left shoulder girdle, part unspecified, initial encounter for closed fracture (principal); E07.89 Other specified disorders of thyroid; E11.22 Type 2 diabetes mellitus with diabetic chronic kidney disease; I12.9 Hypertensive chronic kidney disease with stage 1 through stage 4 chronic kidney disease, or unspecified chronic kidney disease; N18.9 Chronic kidney disease, unspecified; E78.00 Pure hypercholesterolemia, unspecified; W18.39XA Other fall on same level, initial encounter; Y93.89 Activity, other specified; Y92.89 Other specified places as the place of occurrence of the external cause; Y99.8 Other external cause status
CPT/HCPCS: 73000; 73030; 96372; 99284; J1885